=== PATIENT | female | born 1975 | race Caucasian/White ===

== ENCOUNTER 2016-08-06 11:39 | Inpatient (IN) | payer MEDICAID, OTHER ==
[~2016-08-06] VITALS: Ht 152.4 cm; Wt 71.5 kg
[~2016-08-06 11:39] MED LIST: CALC-134 PO; FERR28TA PO; PREN1TAB62 PO; VIC; [UNRECOGNIZED DRUG - CODE]
[2016-08-06 12:03] VITALS: Ht 152.4 cm; Wt 71.5 kg
--- NOTE | 2016-08-06 12:26 | RADRPT ---
PROCEDURE: US Obstetrical CLINICAL INDICATION: Unable to assess heart tones TECHNIQUE: Multiple real-time images were acquired of the patient's maternal abdomen utilizing a curved array transducer. COMPARISON: None available FINDINGS: A single fetus is identified in a cephalic presentation but there is no motion or cardiac acti vity compatible with demise. There is hydrops. The placenta is implanted anteriorly and is grade 1. There is no placenta previa or abruptio. Measurements: BPD: 4.9 cm, corresponds to a age of 20 weeks 6 days Head circumference: 18.1 cm, corresponds to a age of 20 weeks 3 days Abdominal circumference: 19.1 cm, corresponds to a age of 23 weeks 6 days Femoral length: 3.1 cm, corresponds to a age of 19 weeks 3 days Average age by ultrasound: 21 weeks 1 day plus or minus 1 week 3 days Estimated weight: 446 g IMPRESSION: 1. demise. There is hydrops. The fetus is the size of the average fetus at 21 weeks 1 day plus or minus 1 week 3 days. 2. Anterior placenta, grade 1, no previa. Voice mail was left on the answering machine of the office of Dr. Quiroz. Physician Franki Date Time Electronically viewed and signed by Physician Franki on 08/06/2016 12:26 /
[2016-08-06] MEDS ORDERED: LACTATED RINGER'S 1,000 ML IV SCH (12:35)
[2016-08-06] MEDS ORDERED: CARBOPROST 250 MCG INJ IM PRN ×3 (13:00→17:30)
[2016-08-06] MEDS ORDERED: LACTATED RINGER'S 1,000 ML IV PRN (13:00)
[2016-08-06] MEDS ORDERED: LIDOCAINE 1% (MPF) 30 ML INJ INJ PRN (13:00)
[2016-08-06] MEDS ORDERED: OXYTOCIN 30 UNITS/LR 500 ML IV PRN ×3 (13:00→17:30)
[2016-08-06] MEDS ORDERED: METHYLERGONOVINE 0.2 MG INJ IM PRN ×3 (13:00→17:30)
[2016-08-06] MEDS ORDERED: MISOPROSTOL 200 MCG TAB PR PRN ×3 (13:00→17:30)
[2016-08-06] MEDS ORDERED: CEFAZOLIN 2 GM/50 ML (PMX) 50 ML IV SCH (14:00)
[2016-08-06] MEDS: LACTATED RINGER'S 1,000 ML IV SCH ×2 (14:00→19:19)
--- NOTE | 2016-08-06 15:28 | RADRPT ---
PROCEDURE: US OB. CLINICAL INDICATION: demise , pain TECHNIQUE: Transabdominal views of the pelvis are available for review. COMPARISON: 08/06/2016 FINDINGS: There is a single intrauterine gestation in a vertex position. The heart tones are absent. The placenta is anterior. RPTAT: AA IMPRESSION: demise. .Ricky Donohue MD, MD Date Time Electronically viewed and signed by .Ricky Donohue MD, MD on 08/06/2016 15:27 .S/
[2016-08-06 17:31] LABS: BASOPHILS % 0.5 % (0.0-2.0); EOSINOPHILS # 0.1 10^3/ul (0.0-0.5); EOSINOPHILS % 1.3 % (0.0-7.0); HEMATOCRIT 33.5 % (37.0-47.0); HEMOGLOBIN 11.5 g/dl (12.0-16.0); LYMPHOCYTES # 1.4 10^3/ul (0.8-2.9); MEAN CORPUSCULAR HEMOGLOBIN 29.4 pg (29.0-33.0); MEAN CORPUSCULAR HGB CONC 34.3 g/dl (32.0-37.0); MEAN CORPUSCULAR VOLUME 85.9 fl (82.0-101.0); MEAN PLATELET VOLUME 9.1 fl (7.4-10.4); MONOCYTE # 0.5 10^3/ul (0.3-0.9); MONOCYTES % 7.1 % (0.0-11.0); NEUTROPHIL # 4.7 10^3/ul (1.6-7.5); NEUTROPHILS % 70.1 % (39.0-77.0); PLATELET COUNT 184 10^3/UL (140-440); RED BLOOD COUNT 3.91 10^6/ul (4.20-5.40); RED CELL DISTRIBUTION WIDTH 13.6 % (11.5-14.5); UNCORRECTED WBC 6.7 10^3/ul (4.8-10.8); WHITE BLOOD COUNT 6.7 10^3/ul (4.8-10.8)
[2016-08-06 17:32] LABS: CONDITION 1
[2016-08-06 17:38] LABS: INR 0.91; PROTIME 12.3 Sec (12.2-14.2)
[2016-08-06 17:39] LABS: PARTIAL THROMBOPLASTIN TIME 26.8 Sec (25.0-35.0)
[2016-08-06] MEDS ORDERED: FENTAnyl 50 MCG/ML VIAL ONE (19:42)
[2016-08-06] MEDS ORDERED: morphine SULFATE/PF (10 MG/10 ML) INJ ONE (19:42)
[2016-08-06] MEDS ORDERED: MIDAZOLAM 1 MG/ML 2 ML INJ ONE (19:48)
[2016-08-06] MEDS ORDERED: EPHEDrine SULFATE 50 MG/5 ML SYG ONE (19:54)
[2016-08-06] MEDS ORDERED: OXYTOCIN 30 UNITS/LR 500 ML IV SCH (20:00)
[2016-08-06] MEDS ORDERED: ZOLPIDEM 5 MG TAB PO PRN (20:30)
[2016-08-06] MEDS ORDERED: NALOXONE (0.4 MG/ML) INJ IV PRN (20:30)
[2016-08-06] MEDS ORDERED: DIPHENHYDRAMINE 50 MG INJ IV PRN (20:30)
[2016-08-06] MEDS ORDERED: KETOROLAC 30 MG INJ IV PRN (20:30)
[2016-08-06] MEDS ORDERED: ONDANSETRON 4 MG INJ IV PRN (20:30)
[2016-08-06] MEDS ORDERED: HYDROmorphONE 1 MG/ML SYG IV PRN ×2 (20:30)
--- NOTE | 2016-08-06 21:09 | HP ---
Date/Time of Note Date/Time of Note DATE: 08/06/16 TIME: 21:07 OB - History Hx of Present Free Text/Dictation @24+wks GA with demise Hx of 3 previous c/section Multipara desires sterilization Patient declines a vaginal delivery and desires to have a primary c/section + Bilateral tubal ligation Risks and benefits extensively discussed : 6 Para: 3 Ultrasounds: Normal mid trimester US Obstetrical Complications: None Medical Complications: None Past Family/Social History * Past Medical, Surgical, Family and Obstetric Histories reviewed from chart. OB Admission Exam Physical Exam Abdomen: WNL Extremities: Normal Cervical Dilatation: None Effacement: 0% Membranes: Intact Heart Rate: 140's Last 72 hours Lab Results CBC & BMP 08/06/16 16:53 OB Assessment/Plan Reason for admission: section Plan: Section Other plan: @24+wks GA with demise Hx of 3 previous c/section Multipara desires sterilization Patient declines a vaginal delivery and desires to have a primary c/section + Bilateral tubal ligation Risks and benefits extensively discussed BRIANA ALLEN M.D. Aug 06, 2016 21:09
--- NOTE | 2016-08-06 21:12 | OPR ---
Operative Report Planned Procedure Free Text/Dictation @24+wks GA with demise Hx of 3 previous c/section Multipara desires sterilization Patient declines a vaginal delivery and desires to have a primary c/section + Bilateral tubal ligation Risks and benefits extensively discussed Procedure date Aug 06, 2016 Procedure(s) Repeat c/section +Bilateral tubal ligation and Right ovarian cystectomy Performed by: BRIANA ALLEN M.D. Assisting provider: KEVIN ALEJANDRA Anesthesiologist: KATERINA MORALES Pre-procedure diagnosis @24+wks GA with demise Hx of 3 previous c/section Multipara desires sterilization Patient declines a vaginal delivery and desires to have a primary c/section + Bilateral tubal ligation Risks and benefits extensively discussed Anesthesia Type: spinal Procedure Description Under satisfactory [] anesthesia, the patient was prepped and draped and placed in a supine position, tilted to the left. Pfannenstiel incision was made, carried through the subcutaneous tissue. Bleeders brought under control with electrocautery. Fascia incised to the length of the incision. Rectus muscles from the fascia, divided midline. Peritoneum exposed, entered through a transverse incision. Exploration of abdomen revealed gravid uterus. Bladder flap was developed. Transverse incision was made in the lower segment of the uterus. Amniotic sac ruptured. [] amniotic fluid noted. [] Nasal oropharyngeal suction was performed. The baby was handed to the team for immediate attention. The placenta was delivered manually intact. Uterine cavity was cleaned with wet sponge and drainage established. Uterus closed in 2 layers using [] in continuous fashion.Right fallopian was grasped and tied 4times and cut and sent to pathology,same procedure done on the left tube .There was a suspecious right ovarian cyst 1x2 cm that was removed 2-0 chromic was used to establish the hemostasis Peritoneal cavity irrigated with warm saline. Sponge, needle and instrument count reported to be correct. Abdominal peritoneum closed with [] continuously. Rectus muscle approximated with []. Fascia closed with [] , and skin closed with dermoband. Estimated blood loss [600]mL. Urine bag contained []mL of urine Post-Procedure Findings: Live Baby [], Apgars [] and [], weight [], position [], [] presentation []cord. Specimen removed: Yes Complications: None Pt Condition post procedure: stable Disposition: PACU Physician Certification I, the undersigned physician, hereby certify that I have discussed the procedure described in this consent form with this patient (or the patient's legal home furnishings sales representative), including: * The risk and benefits of the procedure; * Any adverse reactions that may reasonably be expected to occur; * Any alternative efficacious methods of treatment which may be medically viable ; * The potential problems that may occur during recuperation; * Potential for blood transfusion and associated risks/benefits; and * Any research or economic interest I may have regarding this treatment. I further certify that the patient/legally responsible person was encouraged to ask question and that all questions were answered. BRIANA ALLEN M.D. Aug 06, 2016 21:12
--- NOTE | 2016-08-06 23:55 | DELSUM ---
Delivery Summary A-C Datetime Report Generated by CPN: 08/06/2016 23:55 DELIVERY PERSONNEL Lace Sewer: Canuto, Meredith MATERNAL INFORMATION Delivery Anesthesia: Spinal Medications in Delivery: SEE ANESTHESIA FLOWSHEET Estimated Blood Loss (ml): 500 Placenta Cultured: Yes Maternal Complications: None LABOR SUMMARY EDC: 11/24/2016 00:00 No. Babies in Womb: 1 Attempted: No Labor Anesthesia: None LABOR INFORMATION Reason for Induction: Not Applicable Oxytocin: N/A Group B Beta Strep: Not Done Antibiotics # of Doses: ANCEF Steroids Given: None Reason Steroids Not Administered: Not Applicable MEMBRANES Membranes Rupture Method: Artificial Rupture of Membranes: 08/06/2016 20:14 Length of Rupture (hr): 0.00 Amniotic Fluid Color: Heavy Meconium Amniotic Fluid Amount: Moderate Amniotic Fluid Odor: Normal STAGES OF LABOR Stage 3 hr: 0 Stage 3 min: 1 CSECTION DELIVERY Primary Indication: Other Other Primary Indication: DEMISE CSection Urgency: Elective CSection Incidence: Repeat Labor: No Labor Elective: Elective CSection Incision: Lower Uterine Transverse Sterilization Procedure: [place] BABY A INFORMATION Delivery Date/Time: 08/06/2016 20:14 Method of Delivery: Born in Route : No : N/A Forceps: N/A Vacuum Extraction: N/A Shoulder Dystocia : N/A SHOULDER DYSTOCIA BABY A Infant Delivery Date/Time: 08/06/2016 20:14 PRESENTATION/POSITION BABY A Presentation: Unable to Assess PLACENTA INFORMATION BABY A Placenta Delivery Time : 08/06/2016 20:15 Placenta Method of Delivery: Manual Removal Placenta Status: Delivered SCORES BABY A Heart Rate 1 min: Absent Resp Effort 1 min: Absent Reflex Irritability 1 min: No Response Muscle Tone 1 min: Flaccid Color 1 min: Blue/Pale Resuscitation Effort 1 min: N/A SCORE 1 MIN: 0 Heart Rate 5 min: Absent Resp Effort 5 min: Absent Reflex Irritability 5 min: No Response Muscle Tone 5 min: Flaccid Color 5 min: Blue/Pale Resuscitation Effort 5 min: N/A SCORE 5 MIN: 0 Heart Rate 10 min: >100 bpm Resp Effort 10 min: Good Cry Reflex Irritability 10 min: Cough/Sneeze/Pulls Away Muscle Tone 10 min: Active Motion Color 10 min: Completely Mil[place] Resuscitation Effort 10 min: N/A SCORE 10 MIN: 10 INFORMATION BABY A Gestational Age at Delivery: 24.2 Gestational Status: - <34 Weeks Infant Outcome : Stillborn Infant Condition : Critical Sex: Male IDENTIFICATION/MEDS BABY A ID Band Number: [id number] ID Band Location: Left Leg Sensor Applied: N/A Vitamin K Given : Not Given Erythromycin Given: Not Given WEIGHT/LENGTH BABY A Infant Birthweight (gm): 505 Weight (lb): 1 Infant Weight (oz): 2 Infant Length (in): 10.00 Infant Length (cm): 25.40 CORD INFORMATION BABY A Nuchal Cord : N/A Cord Blood Taken: N/A Banking/Donate Info: [facility] REF #: [id number] Suction: None ASSESSMENT BABY A Complications: None Physical Findings at Delivery: Other Physical Findings- Other: DEMISE WITH UNSOLID HEAD STRUCTURE Varnishing Unit Operator/ALS Called : No Care By: FELICE
[2016-08-07] MEDS ORDERED: CARBOPROST 250 MCG INJ IM PRN
[2016-08-07] MEDS ORDERED: METHYLERGONOVINE 0.2 MG INJ IM PRN
[2016-08-07] MEDS ORDERED: LANOLIN 7 GM TUBE TOP PRN
[2016-08-07] MEDS ORDERED: MISOPROSTOL 200 MCG TAB PR PRN
[2016-08-07] MEDS ORDERED: NA PHOSPHATE/BIPHOS 133 ML ENEMA PR PRN
[2016-08-07] MEDS ORDERED: OXYTOCIN 30 UNITS/LR 500 ML IV PRN
[2016-08-07] MEDS: LACTATED RINGER'S 1,000 ML IV SCH ×3 (02:21→19:30)
[2016-08-07] MEDS: CEFAZOLIN 2 GM/50 ML (PMX) 50 ML IV SCH ×3 (04:00→16:00)
[2016-08-07] MEDS: IBUPROFEN 600 MG TAB PO SCH ×4 (05:52→20:20)
[2016-08-07 06:22] LABS: BASOPHILS % 0.3 % (0.0-2.0); LYMPHOCYTES # 0.9 10^3/ul (0.8-2.9); MONOCYTE # 0.5 10^3/ul (0.3-0.9); NEUTROPHIL # 5.8 10^3/ul (1.6-7.5); RED BLOOD COUNT 3.53 10^6/ul (4.20-5.40); UNCORRECTED WBC 7.3 10^3/ul (4.8-10.8); WHITE BLOOD COUNT 7.3 10^3/ul (4.8-10.8)
[2016-08-07 06:23] LABS: CONDITION 1
[2016-08-07 10:20] LABS: EOSINOPHILS % 0.2 % (0.0-7.0); HEMATOCRIT 30.7 % (37.0-47.0); HEMOGLOBIN 10.5 g/dl (12.0-16.0); LYMPHOCYTES % 12.3 % (15.0-51.0); MEAN CORPUSCULAR HEMOGLOBIN 29.7 pg (29.0-33.0); MEAN CORPUSCULAR HGB CONC 34.2 g/dl (32.0-37.0); MEAN CORPUSCULAR VOLUME 86.8 fl (82.0-101.0); MEAN PLATELET VOLUME 9.1 fl (7.4-10.4); MONOCYTES % 7.5 % (0.0-11.0); NEUTROPHILS % 79.7 % (39.0-77.0); PLATELET COUNT 139 10^3/UL (140-440); RED CELL DISTRIBUTION WIDTH 13.4 % (11.5-14.5)
[2016-08-07] MEDS ORDERED: DIPHTH/TET/ACEL PERTUSS (ADULT) 0.5 ML VIAL IM* ONE (12:00)
[2016-08-07] MEDS ORDERED: CEFAZOLIN 2 GM/50 ML (PMX) 50 ML IVPB SCH (19:45)
--- NOTE | 2016-08-07 22:43 | QN ---
Documentation Comment POD#1 is stable afebrile tolerates diet No VB +Flatus +voids VS stable Gen NAD Abd soft NT ND Incision intact Genitalaia no blood at perinium --->Discharge plan tomorrow --->Ambulation BRIANA ALLEN M.D. Aug 07, 2016 22:43
[2016-08-08] MEDS: IBUPROFEN 600 MG TAB PO SCH ×5 (06:00→18:58)
[2016-08-08 16:00] VITALS: BP 101/78; PULSE 78; RESP 16
[2016-08-08] MEDS: OXYCODONE/ACETAMINOPHEN (5/325) TAB PO PRN (21:41)
[2016-08-09] MEDS: IBUPROFEN 600 MG TAB PO SCH
[2016-08-09] MEDS: OXYCODONE/ACETAMINOPHEN (5/325) TAB PO PRN ×2 (03:59→12:39)
[2016-08-09] MEDS ORDERED: DIPHTH/TET/ACEL PERTUSS (ADULT) 0.5 ML VIAL IM* ONE (09:00)
[2016-08-09] MEDS ORDERED: NA PHOSPHATE/BIPHOS 133 ML ENEMA PR ONE (11:00)
[2016-08-09] MEDS ORDERED: MAGNESIUM HYDROXIDE 30ML CUP PO ONE ×2 (11:00)
--- NOTE | 2016-08-10 17:22 | DS ---
Date/Time of Note Date/Time of Note DATE: 08/10/16 TIME: 17:21 Discharge Summary Admission/Discharge Info Admit Date/Time Aug 06, 2016 at 12:44 Discharge Date/Time Aug 09, 2016 at 14:37 Final Diagnosis 20-24 wks IUFD Patient Condition: Stable Procedures Repeat c/section x3 + Bilateral tubal ligation Hospital Course uneventful Home Meds Discontinued Reported Medications Calcium Carbonate/Vitamin D3 (Calcium + Vitamin D Tablet) 1 Tab Tablet, 1 TAB PO 09/10/13 Ferrous Sulfate (Ferrous Sulfate) 1 Tab Tablet, 1 TAB PO 09/10/13 Vit-Iron Fumarate-FA ( Vitamin Tablet) 1 Each Tablet, 1 EACH PO 09/10/13 Acetaminophen/Hydrocodone (Vicodin) 1 Tab Tab 12/05/10 Methylergonovine Maleate* (Methergine*) 0.2 Mg Tablet 12/05/10 BRIANA ALLEN M.D. Aug 10, 2016 17:22
== END 2016-08-09 14:37 | disposition home or self-care (01) | DRG 766 ==
LOC: OBT 11:39 → L-D 11:40 → OBT 12:40 → L-D 12:44 → OBG 08-07 00:46
PROVIDERS: ADMIT Obstetrics & Gynecology; ATTEND Obstetrics & Gynecology
PROC: 0UB70ZZ Excision of Bilateral Fallopian Tubes, Open Approach (ICD-10-PCS; 2016-08-06)
PROC: 0UB00ZZ Excision of Right Ovary, Open Approach (ICD-10-PCS; 2016-08-06)
PROC: 10D00Z1 Extraction of Products of Conception, Low, Open Approach (ICD-10-PCS; principal; 2016-08-06 20:00)
PROC: 3E0234Z Introduction of Serum, Toxoid and Vaccine into Muscle, Percutaneous Approach (ICD-10-PCS; 2016-08-08)
DX: O36.4XX0 Maternal care for intrauterine death, not applicable or unspecified (principal); N83.201 Unspecified ovarian cyst, right side; O34.219 Maternal care for unspecified type scar from previous cesarean delivery; O34.82 Maternal care for other abnormalities of pelvic organs, second trimester; Z30.2 Encounter for sterilization; Z23 Encounter for immunization; Z3A.24 24 weeks gestation of pregnancy; Z37.1 Single stillbirth
CPT/HCPCS: 76815; 76816; 85025; 85610; 85730; 86592; 86850; 86900; 86901; 88302; 88305; 88307; 90715; G0463; J0690; J1885; J2210; J2250; J2274; J2590; J3010; J7120